=== PATIENT | female | born 1970 | race Caucasian/White ===

== ENCOUNTER → 2016-12-12 | Outpatient (CLI) | payer BC ==
--- NOTE | 2016-12-13 09:01 | MM ---
Reason for exam: screening (asymptomatic). Last mammogram was performed 5 months ago. Physical Findings: A clinical breast exam by your physician is recommended on an annual basis and results should be correlated with mammographic findings. MG 3D Screening Mammo W/Cad Bilateral CC and MLO view(s) were taken. Prior study comparison: July 07, 2016, mammogram, performed at [facility]. December 11, 2015, mammogram, performed at [facility]. There are scattered fibroglandular densities. Finding: There are typically benign calcifications in the right breast. There is a chronic nodularity bilaterally. No significant changes in finding since July 07, 2016 and December 11, 2015. ASSESSMENT: Benign, BI-RAD 2 RECOMMENDATION: Routine screening mammogram of both breasts in 1 year.
== END | disposition home or self-care (01) ==
LOC: RADMAMWWP 07:56
PROVIDERS: ATTEND Obstetrics & Gynecology
DX: Z12.31 Encounter for screening mammogram for malignant neoplasm of breast (principal)
CPT/HCPCS: 77063; G0202

== ENCOUNTER → 2017-03-31 | Outpatient (CLI) | payer BC ==
--- NOTE | 2017-04-11 10:51 | EM ---
DATE OF SERVICE: AGE: 46Y SEX: F INDICATIONS: EVENT MONITOR A 7-day event monitor. DATE OF THE MONITOR: April 01, 2017 to April 05, 2017. INDICATION OF THE STUDY: Heart racing. The patient was monitored for one week. The baseline rhythm appeared to be a sinus mechanism. There was multiple episodes of premature ventricular contraction noted. One episode of sinus tachycardia noted as well. There is no evidence of any sustained tachy or walker arrhythmia. There is no evidence of any advanced AV block. There is no evidence of any sinus pause or sinus arrest. CONCLUSION: 1. This is a 7-day event monitor. 2. Sinus rhythm as a baseline rhythm. 3. Multiple episodes of premature ventricular contractions noted. 4. One episode of sinus tachycardia noted. 5. There is no evidence of any sustained tachy or walker arrhythmia. 6. There is no evidence of sinus pause or sinus arrest.
== END | disposition home or self-care (01) ==
LOC: RADECHMAIN 11:47
PROVIDERS: ATTEND Family Medicine
DX: I10 Essential (primary) hypertension (principal); R00.2 Palpitations
CPT/HCPCS: 93270; 93271

== ENCOUNTER → 2017-05-23 | Outpatient (CLI) | payer BC ==
--- NOTE | 2017-05-24 11:44 | ECHOF ---
Referral Reason:R00.2 Palpitations MEASUREMENTS -------- HEIGHT: 162.6 cm WEIGHT: 98.9 kg BP: 134/70 RVIDd: 2.9 cm (< 3.3) IVSd: 1.1 cm (0.6 - 1.1) LVIDd: 4.4 cm (3.9 - 5.3) LVPWd: 1.0 cm (0.6 - 1.1) IVSs: 1.7 cm LVIDs: 2.8 cm LVPWs: 1.5 cm LA Diam: 3.7 cm (2.7 - 3.8) LAESV Index (A-L): 18.16 ml/m Ao Diam: 2.9 cm (2.0 - 3.7) AV Cusp: 2.1 cm (1.5 - 2.6) MV EXCURSION: 12.451 mm (> 18.000) MV EF SLOPE: 56 mm/s (70 - 150) EPSS: 0.9 cm MV E Carrington: 0.74 m/s MV DecT: 228 ms MV A Carrington: 0.85 m/s MV E/A Ratio: 0.87 FINDINGS -------- Sinus rhythm. This was a technically good study. The left ventricular size is normal. Left ventricular wall thickness is normal. Overall left ventricular systolic function is normal with, an EF between 55 - 60 %. The right ventricle is normal in size. Normal LA size by volume 22+/-6 ml/m2. The right atrium is normal in size. The aortic valve is trileaflet, and appears structurally normal. No aortic stenosis or regurgitation. The mitral valve is normal. The tricuspid valve appears structurally normal. There is no pulmonic regurgitation present. The aortic root size is normal. There is no pericardial effusion. CONCLUSIONS -------- 1. Sinus rhythm. 2. There is no pericardial effusion. 3. This was a technically good study. 4. Left ventricular wall thickness is normal. 5. Normal LA size by volume 22+/-6 ml/m2. 6. The aortic valve is trileaflet, and appears structurally normal. No aortic stenosis or regurgitation. 7. The mitral valve is normal. 8. The tricuspid valve appears structurally normal. 9. There is no pulmonic regurgitation present. 10. The aortic root size is normal. PEARL MAKER: Dilia Swanson RDCS
== END | disposition home or self-care (01) ==
LOC: RADECHMAIN 14:55
PROVIDERS: ATTEND Family Medicine
DX: R00.2 Palpitations (principal)
CPT/HCPCS: 93306

== ENCOUNTER → 2019-09-11 | Outpatient (CLI) | payer BC, OTHER ==
--- NOTE | 2019-09-11 10:48 | XR ---
EXAMINATION TYPE: XR Hip Complete LT DATE OF EXAM: 09/11/2019 COMPARISON: NONE HISTORY: Pain TECHNIQUE: 2 views submitted FINDINGS: There is no evidence of erosive change or acute fracture. Hypertrophic change of the acetabulum noted. Calcifications in pelvis are likely vascular. IMPRESSION: 1. Acetabular hypertrophy can be associated with femoral acetabular impingement. Correlate clinically ..
== END | disposition home or self-care (01) ==
LOC: RADXRMAIN 10:09
PROVIDERS: ATTEND Family Medicine
DX: M89.38 Hypertrophy of bone, other site (principal)
CPT/HCPCS: 73502

== ENCOUNTER 2019-11-12 11:10 | Emergency (ER) | payer BC ==
[2019-11-12 11:21] VITALS: TEMP 97.8
--- NOTE | 2019-11-12 11:44 | ED ---
General Adult HPI - General Chief complaint: Arrhythmia/Palpitations Stated complaint: Palpitations Time Seen by Provider: 11/12/19 11:16 Source: patient, RN notes reviewed Mode of arrival: ambulatory Limitations: no limitations - History of Present Illness Initial comments: Patient is a pleasant 49-year-old female presenting to the emergency Department with complaints of palpitations. Onset of symptoms was yesterday. Patient did have similar symptoms around a year and half ago and was worked up without a cause been fine. Patient states symptoms were somewhat worse yesterday than today. Patient feels like her heart occasionally has an episode of skipping. No chest pain or dyspnea. Patient does feel lightheaded when symptoms occur. - Related Data Home Medications Medication Instructions Recorded Confirmed Atorvastatin [Lipitor] 40 mg PO HS 02/03/16 02/05/16 Bisoprolol-Hctz 2.5-6.25 mg [Ziac 1 each PO DAILY 02/03/16 02/03/16 2.5-6.25] Omeprazole 20 mg PO DAILY 02/03/16 02/03/16 glipiZIDE XL [Glucotrol Xl] 5 mg PO DAILY 02/03/16 02/05/16 metFORMIN HCL [Glucophage] 500 mg PO BID 02/03/16 02/05/16 Previous Rx's Medication Instructions Recorded Hydrocodone/Acetaminophen [[place] 1 - 2 each PO Q4HR PRN #30 tab 02/05/16 5-325] Methocarbamol [Robaxin] 1,000 mg PO QID PRN 5 Days tab 10/12/18 Allergies Allergy/AdvReac Type Severity Reaction Status Date / Time metoclopramide HCl Allergy see comment Verified 11/12/19 11:20 [From [place]] Review of Systems ROS Statement: Those systems with pertinent positive or pertinent negative responses have been documented in the HPI. ROS Other: All systems not noted in ROS Statement are negative. Constitutional: Denies: fever Eyes: Denies: eye pain ENT: Denies: ear pain Respiratory: Denies: cough Cardiovascular: Reports: palpitations. Denies: chest pain Endocrine: Denies: fatigue Gastrointestinal: Denies: abdominal pain Genitourinary: Denies: dysuria Musculoskeletal: Denies: back pain Skin: Denies: rash Neurological: Denies: weakness Past Medical History Past Medical History: Diabetes Mellitus, GERD/Reflux, Hyperlipidemia, Hypertension Additional Past Medical History / Comment(s): vitiligo History of Any Multi-Drug Resistant Organisms: None Reported Past Surgical History: Section, Cholecystectomy Additional Past Surgical History / Comment(s): pilonidal cyst removed, fatty tumor removed from back Past Anesthesia/Blood Transfusion Reactions: No Reported Reaction Past Psychological History: No Psychological Hx Reported Smoking Status: Former smoker Past Alcohol Use History: None Reported Past Drug Use History: None Reported - Past Family History Father Family Medical History: Cancer Additional Family Medical History / Comment(s): prostate General Exam Limitations: no limitations General appearance: alert, in no apparent distress Head exam: Present: normocephalic Eye exam: Present: normal appearance, PERRL ENT exam: Present: normal oropharynx Neck exam: Present: normal inspection Respiratory exam: Present: normal lung sounds bilaterally Cardiovascular Exam: Present: regular rate, normal rhythm, normal heart sounds Expanded Peripheral pulses: 2+: Radial (R), Radial (L), Posterior Tibialis (R), Posterior Tibialis (L), Dorsalis Pedis (R), Dorsalis Pedis (L) GI/Abdominal exam: Present: soft. Absent: tenderness Neurological exam: Present: alert Psychiatric exam: Present: normal affect, normal mood Skin exam: Present: normal color Course Vital Signs 11/12/19 11/12/19 11:18 13:20 Temperature 97.8 F Pulse Rate 85 70 Respiratory 16 18 Rate Blood Pressure 114/75 121/66 O2 Sat by Pulse 99 99 Oximetry EKG Findings - EKG Comments: EKG Findings:: Normal sinus rhythm 81. NV 156. QRS 98. QT 402. QTC 466. Normal axis. Normal QRS. No acute ST change. Medical Decision Making - Medical Decision Making Patient does have occasional PACs seen on the monitor that correlates with her symptoms. Patient reevaluated and updated. - Lab Data Result diagrams: 11/12/19 11:33 11/12/19 11:33 Lab Results 11/12/19 11/12/19 11/12/19 Range/Units 11:33 11:33 11:33 WBC 8.5 (3.8-10.6) k/uL RBC 4.67 (3.80-5.40) m/uL Hgb 13.8 (11.4-16.0) gm/dL Hct 39.0 (34.0-46.0) % MCV 83.5 (80.0-100.0) fL MCH 29.5 (25.0-35.0) pg MCHC 35.3 (31.0-37.0) g/dL RDW 13.3 (11.5-15.5) % Plt Count 186 (150-450) k/uL Neutrophils % 74 % Lymphocytes % 18 % Monocytes % 4 % Eosinophils % 4 % Basophils % 0 % Neutrophils # 6.3 (1.3-7.7) k/uL Lymphocytes # 1.5 (1.0-4.8) k/uL Monocytes # 0.3 (0-1.0) k/uL Eosinophils # 0.3 (0-0.7) k/uL Basophils # 0.0 (0-0.2) k/uL PT 10.0 (9.0-12.0) sec INR 0.9 (<1.2) APTT 22.3 (22.0-30.0) sec Sodium 137 (137-145) mmol/L Potassium 4.2 (3.5-5.1) mmol/L Chloride 103 (98-107) mmol/L Carbon Dioxide 22 (22-30) mmol/L Anion Gap 12 mmol/L BUN 20 H (7-17) mg/dL Creatinine 0.88 (0.52-1.04) mg/dL Est GFR (CKD-EPI)AfAm 89 (>60 ml/min/1.73 sqM) Est GFR (CKD-EPI)NonAf 77 (>60 ml/min/1.73 sqM) Glucose 265 H (74-99) mg/dL Calcium 9.9 (8.4-10.2) mg/dL Magnesium 1.4 L (1.6-2.3) mg/dL Total Bilirubin 0.8 (0.2-1.3) mg/dL AST 29 (14-36) U/L ALT 34 (4-34) U/L Alkaline Phosphatase 107 (38-126) U/L Troponin I (0.000-0.034) ng/mL Total Protein 7.3 (6.3-8.2) g/dL Albumin 4.3 (3.5-5.0) g/dL TSH 0.836 (0.465-4.680) mIU/L Free T4 1.09 (0.78-2.19) ng/dL Free T3 pg/mL 2.5 L (2.8-5.3) pg/ml 11/12/19 Range/Units 11:33 WBC (3.8-10.6) k/uL RBC (3.80-5.40) m/uL Hgb (11.4-16.0) gm/dL Hct (34.0-46.0) % MCV (80.0-100.0) fL MCH (25.0-35.0) pg MCHC (31.0-37.0) g/dL RDW (11.5-15.5) % Plt Count (150-450) k/uL Neutrophils % % Lymphocytes % % Monocytes % % Eosinophils % % Basophils % % Neutrophils # (1.3-7.7) k/uL Lymphocytes # (1.0-4.8) k/uL Monocytes # (0-1.0) k/uL Eosinophils # (0-0.7) k/uL Basophils # (0-0.2) k/uL PT (9.0-12.0) sec INR (<1.2) APTT (22.0-30.0) sec Sodium (137-145) mmol/L Potassium (3.5-5.1) mmol/L Chloride (98-107) mmol/L Carbon Dioxide (22-30) mmol/L Anion Gap mmol/L BUN (7-17) mg/dL Creatinine (0.52-1.04) mg/dL Est GFR (CKD-EPI)AfAm (>60 ml/min/1.73 sqM) Est GFR (CKD-EPI)NonAf (>60 ml/min/1.73 sqM) Glucose (74-99) mg/dL Calcium (8.4-10.2) mg/dL Magnesium (1.6-2.3) mg/dL Total Bilirubin (0.2-1.3) mg/dL AST (14-36) U/L ALT (4-34) U/L Alkaline Phosphatase (38-126) U/L Troponin I <0.012 (0.000-0.034) ng/mL Total Protein (6.3-8.2) g/dL Albumin (3.5-5.0) g/dL TSH (0.465-4.680) mIU/L Free T4 (0.78-2.19) ng/dL Free T3 pg/mL (2.8-5.3) pg/ml Disposition Clinical Impression: Premature atrial complex Disposition: HOME SELF-CARE Condition: Stable Instructions (If sedation given, give patient instructions): Premature Atrial Contractions (ED) Additional Instructions: Please follow-up with primary care physician in the next couple days for recheck. Consider Holter monitor, echo, or cardiac evaluation. Take magnesium [id number] 400 mg twice daily for the next 4 days. Have primary care physician recheck magnesium level. Return for increased heart rate, difficulty breathing, pain, worsening symptoms or other concerns. Is patient prescribed a controlled substance at d/c from ED?: No Referrals: Christopher Chou Jr, DO [Primary Care Provider] - 1-2 days Time of Disposition: 13:39
[2019-11-12 12:09] LABS: Albumin 4.3 g/dL (3.5-5.0); Calcium 9.9 mg/dL (8.4-10.2); Magnesium 1.4 mg/dL (1.6-2.3); Potassium 4.2 mmol/L (3.5-5.1); Total Bilirubin 0.8 mg/dL (0.2-1.3); Total Protein 7.3 g/dL (6.3-8.2)
[2019-11-12 12:13] LABS: Basophils % (A) 0 %; Eosinophils # (A) 0.3 k/uL (0-0.7); Eosinophils % (A) 4 %; HGB 13.8 gm/dL (11.4-16.0); Lymphocytes # (A) 1.5 k/uL (1.0-4.8); Lymphocytes % (A) 18 %; MCH 29.5 pg (25.0-35.0); MCHC 35.3 g/dL (31.0-37.0); MCV 83.5 fL (80.0-100.0); Monocytes # (A) 0.3 k/uL (0-1.0); Monocytes % (A) 4 %; Neutrophils # (A) 6.3 k/uL (1.3-7.7); Neutrophils % (A) 74 %; Platelet Count 186 k/uL (150-450); RBC 4.67 m/uL (3.80-5.40); RDW 13.3 % (11.5-15.5); WBC 8.5 k/uL (3.8-10.6)
[2019-11-12] MEDS ORDERED: MAGNESIUM OXIDE 400 MG TAB PO STA (12:14)
[2019-11-12] MEDS ORDERED: SODIUM CHLORIDE 0.9% 500 ML 500 ML IV STA (12:14)
[2019-11-12 12:17] LABS: INR 0.9 (<1.2); Partial Thromboplastin Time 22.3 sec (22.0-30.0)
--- NOTE | 2019-11-12 12:24 | XR ---
EXAMINATION TYPE: XR chest 2V DATE OF EXAM: 11/12/2019 COMPARISON: 01/27/2010 TECHNIQUE: PA and lateral views submitted. HISTORY: Dysrhythmia FINDINGS: The lungs are clear and there is no pneumothorax, pleural effusion, or focal pneumonia. No overt fa ilure. Biapical pleural thickening. Surgical clips in the abdomen. IMPRESSION: 1. No acute process.
[2019-11-12 12:25] LABS: T4, Free (Free Thyroxine) 1.09 ng/dL (0.78-2.19)
[2019-11-12 13:22] VITALS: BP 121/66; PULSE 70; RESP 18
== END 2019-11-12 13:47 | disposition home or self-care (01) ==
LOC: EC 11:10
DX: I49.1 Atrial premature depolarization (principal); E78.5 Hyperlipidemia, unspecified; I10 Essential (primary) hypertension; E11.9 Type 2 diabetes mellitus without complications; K21.9 Gastro-esophageal reflux disease without esophagitis; Z79.84 Long term (current) use of oral hypoglycemic drugs; Z79.899 Other long term (current) drug therapy; Z88.8 Allergy status to other drugs, medicaments and biological substances; Z87.891 Personal history of nicotine dependence
CPT/HCPCS: 36415; 71046; 80053; 83735; 84439; 84443; 84481; 84484; 85025; 85610; 85730; 96360; 99285

== ENCOUNTER → 2020-09-01 | Outpatient (CLI) | payer BC ==
[2020-09-01 08:52] LABS: Basophils % (A) 0 %; Eosinophils # (A) 0.2 k/uL (0-0.7); Eosinophils % (A) 4 %; HCT 35.5 % (34.0-46.0); Lymphocytes # (A) 1.5 k/uL (1.0-4.8); Lymphocytes % (A) 27 %; MCH 29.8 pg (25.0-35.0); MCHC 33.8 g/dL (31.0-37.0); MCV 88.2 fL (80.0-100.0); Mean Platelet Volume 8.1; Monocytes # (A) 0.3 k/uL (0-1.0); Monocytes % (A) 5 %; Neutrophils # (A) 3.5 k/uL (1.3-7.7); Neutrophils % (A) 61 %; Platelet Count 158 k/uL (150-450); RBC 4.03 m/uL (3.80-5.40); RDW 13.6 % (11.5-15.5); WBC 5.8 k/uL (3.8-10.6)
[2020-09-01 14:59] LABS: African American GFR (CKD) 116.3 (60.0-200.0); Albumin/Globulin Ratio 1.6 (1.60-3.17); Anion Gap 8.6 mmol/L (4.00-12.00); BUN/Creat Ratio 15.71 Ratio (12.00-20.00); Calcium 9.2 mg/dL (8.7-10.3); Carbon Dioxide 27.4 mmol/L (21.6-31.8); Chol/HDL Ratio 3.3; Globulin 2.5 g/dL (1.6-3.3); LDL Cholesterol,Calculated 40.6 mg/dL (0.0-131.0); Non-African American GFR(CKD) 100.3 (60.0-200.0); Potassium 4.5 mmol/L (3.5-5.5); Total Bilirubin 0.5 mg/dL (0.2-1.2); Total Protein 6.5 g/dL (6.2-8.2); VLDL Calculation 35.4 mg/dL (5.00-40.00)
[2020-09-01 15:08] LABS: T4, Free (Free Thyroxine) 1.3 ng/dL (0.80-1.80)
== END | disposition home or self-care (01) ==
LOC: LABWHC1 07:20
PROVIDERS: ATTEND Family Medicine
DX: Z00.00 Encounter for general adult medical examination without abnormal findings (principal); R73.9 Hyperglycemia, unspecified; R53.83 Other fatigue; E55.9 Vitamin D deficiency, unspecified
CPT/HCPCS: 36415; 80053; 80061; 82306; 84439; 84443; 85025

== ENCOUNTER → 2022-05-03 | Outpatient (CLI) | payer BC ==
--- NOTE | 2022-05-03 19:51 | CT ---
EXAMINATION TYPE: CT abdomen pelvis wo/w con DATE OF EXAM: 05/03/2022 COMPARISON: None HISTORY: Abdominal pain, back pain CT DLP: 2012.5 mGycm Automated exposure control for dose reduction was used. CONTRAST: Performed without and with IV Contrast, patient injected with 100 mL of Isovue 300. Two-view supine were obtained. There are small calcifications over the left and right kidney. No evid ence of intestinal obstruction or pneumoperitoneum. Fecal pattern is normal. No evidence of abdominal mass. IMPRESSION: Bilateral renal calculi. Nonacute abdomen.
== END | disposition home or self-care (01) ==
LOC: RADCTMAIN 12:35
PROVIDERS: ATTEND Family Medicine
DX: N20.0 Calculus of kidney (principal)
CPT/HCPCS: 82565; 84520; 74178; 36415; Q9967 ×2

== ENCOUNTER → 2022-06-14 | Outpatient (CLI) | payer BC ==
--- NOTE | 2022-06-14 11:34 | US ---
EXAMINATION TYPE: US abdomen complete DATE OF EXAM: 06/14/2022 COMPARISON: recent CT CLINICAL HISTORY: K42.9 UMBILICAL HERNIA W/O OBSTRUCTION. Patient has right sided pain that originate s along the right lateral aspect of the umbilicus and extends laterally and posteriorly; a recent CT stated renal stones but urologist said she does not have renal stones TECHNIQUE: Multiple sonographic images of the abdomen are obtained. The upper abdomen was scanned pe r protocol with additional dedicated imaging of the patient's area of concern. FINDINGS: EXAM MEASUREMENTS: Liver Length: 17.8 cm CBD: 0.7 cm Spleen: 12.5 cm Right Kidney: 9.8 x 4.3 x 5.5 cm Left Kidney: 9.9 x 4.3 x 4.7 cm TRIAL EXAMINER NOTES: Pancreas: wnl as seen, tail gassed out Liver: upper limits in size, attenuating Gallbladder: surgically absent Evidence for sonographic Wright's sign: no CBD: wnl Spleen: wnl Right Kidney: wnl Left Kidney: wnl Upper IVC: wnl Abd Aorta: wnl Right lateral abdominal wall at the patient's area of concern appears wnl. No hernia seen. IMPRESSION: 1. Hepatomegaly 2. No suspicious abnormality of the right lateral wall and low-level patient concern.
== END | disposition home or self-care (01) ==
LOC: RADUSWWP 10:02
PROVIDERS: ATTEND Family Medicine
DX: R16.0 Hepatomegaly, not elsewhere classified (principal)
CPT/HCPCS: 76700

== ENCOUNTER → 2022-08-01 | Outpatient (CLI) | payer BC ==
--- NOTE | 2022-08-01 10:55 | MR ---
MR MRCP INDICATION: Patient age:Female; 52 years old; Reason for study: R10.84 ABD PAIN, E34.9 ELEVATED PARATHYROID HORMONE; [facility]. COMPARISON: Abdominal ultrasound 06/14/2022, CT abdomen pelvis 05/03/2022. TECHNIQUE: Multi planar, T2-weighted imaging with and without fat saturation and chemical shift imag ing was performed of the abdomen. Then, heavily T2 weighted imaging (half-Fourier acquisition single- shot turbo spin-echo) was utilized in order to study the biliary system. Maximum intensity projectio n images were reconstructed from the original data of the biliary tree. No Gadolinium given. FINDINGS: MRCP: The intrahepatic ducts have a normal appearance. The common bile duct at the level of the jo creatic head measures 5 mm in size. The common hepatic duct measures 5 mm in size. No filling defects identified. The pancreatic duct is normal. The gallbladder is surgically absent. Abdomen: The spleen, adrenal glands, kidneys, and pancreas have a normal noncontrast appearance. Ther e is diffuse hepatic signal dropout on out of phase imaging. Small fat filled umbilical hernia. IMPRESSION: 1. No evidence to suggest ductal stricture, choledocholithiasis, or biliary ductal dilatation. 2. Hepatic steatosis.
== END | disposition home or self-care (01) ==
LOC: RADMRIMAIN 06:09
PROVIDERS: ATTEND Family Medicine
DX: E34.9 Endocrine disorder, unspecified (principal); K76.0 Fatty (change of) liver, not elsewhere classified
CPT/HCPCS: 74181

== ENCOUNTER → 2023-10-09 | Outpatient (CLI) | payer BC ==
[2023-10-09 17:12] LABS: Basophils # (A) 0.04 X 10*3/uL (0.00-0.10); Basophils % (A) 0.6 %; Eosinophils # (A) 0.08 X 10*3/uL (0.04-0.35); Eosinophils % (A) 1.3 %; HCT 34.2 % (37.2-46.3); HGB 11.5 g/dL (12.0-15.0); Immature Platelet Fraction 16.3 % (1.1-6.1); Lymphocytes # (A) 1.68 X 10*3/uL (0.90-5.00); Lymphocytes % (A) 26.5 %; MCH 28.5 pg (27.0-32.0); MCHC 33.6 g/dL (32.0-37.0); MCV 84.9 FL (80.0-97.0); Mean Platelet Volume 12.1 FL (9.5-12.2); Monocytes # (A) 0.37 X 10*3/uL (0.20-1.00); Monocytes % (A) 5.8 %; NRBC Per 100 WBC 0 X 10*3/uL (0.00-0.01); Neutrophils # (A) 4.14 X 10*3/uL (1.80-7.70); Neutrophils % (A) 65.3 %; Platelet Count 44 X 10*3/uL (140-440); RBC 4.03 X 10*6/uL (4.10-5.20); RDW 12.7 % (11.5-14.5); WBC 6.34 X 10*3/uL (4.50-10.00)
[2023-10-09 17:21] LABS: Erythrocyte Sedimentation Rate 3 mm/Hr (0-30)
[2023-10-09 20:40] LABS: Gliadin AB IgA, Deaminated Negative (Negative); Gliadin AB IgA, Unit <0.5 U/mL; Gliadin AB IgG, Deaminated Negative (Negative); Gliadin AB IgG, Unit <0.4 U/mL
[2023-10-10 22:12] LABS: ALT 16 U/L (8-44); AST 13 U/L (13-35); Albumin 4.2 g/dL (3.8-4.9); Albumin/Globulin Ratio 1.75 Ratio (1.60-3.17); Alkaline Phosphatase 87 U/L (41-126); BUN/Creat Ratio 14.91 Ratio (12.00-20.00); Blood Urea Nitrogen 16.4 mg/dL (9.0-27.0); C Reactive Protein <0.30 mg/dL (0.00-0.80); Calcium 9.2 mg/dL (8.7-10.3); Carbon Dioxide 19.2 mmol/L (21.6-31.8); Chloride 106 mmol/L (96-109); Globulin 2.4 g/dL (1.6-3.3); Glucose 162 mg/dL (70-110); Potassium 4.6 mmol/L (3.5-5.5); Sodium 144 mmol/L (135-145); Total Bilirubin 0.3 mg/dL (0.3-1.2); Total Protein 6.6 g/dL (6.2-8.2)
== END | disposition home or self-care (01) ==
LOC: LABWHC1 10:56
PROVIDERS: ATTEND Nurse Practitioner Family
DX: K52.9 Noninfective gastroenteritis and colitis, unspecified (principal)
CPT/HCPCS: 36415; 80053; 83516; 85025; 85652; 86140

== ENCOUNTER 2023-10-18 06:22 | Day surgery (SDC) | payer BC ==
[2023-10-18] MEDS ORDERED: LACTATED RINGERS 1,000 ML IV SCH (06:24)
[2023-10-18] MEDS ORDERED: LIDOCAINE 1% (10MG/ML) FOR IV START INTRADERMA PRN (06:24)
[2023-10-18 07:01] LABS: Glucose,Whole Blood 173 mg/dL (70-110)
[2023-10-18 07:09] VITALS: TEMP 97.3
[2023-10-18] MEDS ORDERED: PROPOFOL 10 MG/ML 20 ML VIAL IV ONE (07:12)
[2023-10-18] MEDS ORDERED: LIDOCAINE 1% INJ 10MG/ML (20 ML MDV) ONE (07:12)
--- NOTE | 2023-10-18 07:33 | P.PCN ---
Date of Procedure: 10/18/23 Procedure(s) Performed: Brief history: Patient is a pleasant 53-year-old white female scheduled for an elective upper endoscopy as well as colonoscopy as a part of evaluation of intermittent episodes of nausea vomiting/GERD and chronic diarrhea of several months duration. She since has bowel movements is a 45 times a day with intermittent episodes of nausea vomiting. Procedure performed: Esophagogastroduodenoscopy with biopsy Colonoscopy with biopsy Preoperative diagnosis: Chronic intermittent nausea vomiting Chronic diarrhea Anesthesia: MAC Procedure: After informed consent was obtained from the patient was brought into the endoscopy unit and IV sedation was administered by anesthesia under continuous monitoring. Initially upper endoscopy was done. The Olympus GF 160 video endoscope was inserted inserted into the mouth and esophagus intubated without any difficulty and was gradually advanced into the stomach and duodenum and carefully examined. The bulb and second part of the duodenum appeared normal. Biopsies were done from the duodenum to rule out celiac disease. The scope was then withdrawn into the stomach adequately insufflated with air and upon careful examination the antrum had mild gastritis and biopsies were done from this area. Multiple gastric polyps noted in the proximal body which were biopsied. Mucosa of the, cardia and fundus appeared normal. The scope was then withdrawn into the esophagus. The GE junction was located at 40 cm to the incisors. It appeared regular with no erythema erosions or ulcerations. Rest of the esophagus appeared normal. Patient tolerated the procedure well. At this time the patient continued to remain sedation. Initial digital rectal examination was normal. Olympus CF 160 video colonoscope was then inserted into the rectum and gradually advanced to the cecum without any difficulty. Careful examination was performed as the scope was gradually being withdrawn. The prep was excellent. The ileum appeared normal. The cecum, ascending colon, transverse colon, descending colon, sigmoid colon and rectum appeared normal. Random biopsies were done from ascending and descending colon to evaluate for microscopic/collagenous colitis Retroflexion was performed in the rectum and no lesions were noted. Patient tolerated the procedure well. Impression: 1. Upper endoscopy revealed mild antral gastritis and multiple gastric polyps 2. Colonoscopy was within normal limits with no evidence of colorectal neoplasia or colitis Recommendations: Findings of this examination were discussed with the patient as well as his family. She was advised to follow with the biopsy results. She'll be seen in office in 2-3 weeks.
[2023-10-18 07:56] VITALS: BP 138/78; PULSE 68; RESP 16
== END 2023-10-18 08:05 | disposition home or self-care (01) ==
LOC: ORWHC2ENDO 06:22
PROVIDERS: ATTEND Internal Medicine Gastroenterology
DX: K29.50 Unspecified chronic gastritis without bleeding (principal); K31.89 Other diseases of stomach and duodenum; D72.820 Lymphocytosis (symptomatic); K52.9 Noninfective gastroenteritis and colitis, unspecified; K21.9 Gastro-esophageal reflux disease without esophagitis; I10 Essential (primary) hypertension; E78.5 Hyperlipidemia, unspecified; E11.9 Type 2 diabetes mellitus without complications; Z79.84 Long term (current) use of oral hypoglycemic drugs; Z79.899 Other long term (current) drug therapy; Z90.49 Acquired absence of other specified parts of digestive tract; Z88.8 Allergy status to other drugs, medicaments and biological substances; Z98.890 Other specified postprocedural states
CPT/HCPCS: 88305; 45380; 43239; J2001; J2704

== ENCOUNTER → 2025-05-23 | Outpatient (CLI) | payer BC ==
--- NOTE | 2025-05-23 14:01 | XR ---
EXAMINATION TYPE: XR Hip RT and AP Pelvis DATE OF EXAM: 05/23/2025 1:44 PM INDICATION: Patient age:Female; 54 years old; Reason for study: M25.551 pain R hip; PHH. pain COMPARISON: Left hip radiograph 09/11/2019, CT abdomen and pelvis 05/03/2022 TECHNIQUE: The right hip was examined in the frontal and lateral projections and a AP pelvis. FINDINGS: No evidence of any acute osseous pathology, joint dislocation, or soft tissue swelling. No significant joint space narrowing or osteophytosis. Multiple pelvic phleboliths. IMPRESSION: No acute osseous pathology. [facility], , 05/23/2025 1:59 PM
== END | disposition home or self-care (01) ==
LOC: RADXRMAIN 13:27
PROVIDERS: ATTEND Family Medicine
DX: M25.551 Pain in right hip (principal)
CPT/HCPCS: 73502